=== PATIENT | female | born 1995 | race Hispanic/Latino ===

== ENCOUNTER 2017-03-13 00:48 | Emergency (ER) | payer BC ==
[2017-03-13 01:00] VITALS: BMI 17.7
[2017-03-13 01:02] VITALS: BP 123/75; PULSE 92; RESP 16; TEMP 98.6; O2SAT 98
--- NOTE | 2017-03-13 01:17 | ED PDOC ---
HPI: Female Pain Time Seen by Provider: 03/13/17 01:03 Chief Complaint (Nursing): Female Genitourinary Chief Complaint (Provider): Possible STD History Per: Patient History/Exam Limitations: no limitations Additional Complaint(s): 22 year old female presents to ED with concern for contracted STD and has no past medical history. Patient's boyfriend noticed penile sores and was being evaluated in the ED, causing the patient to request testing as well. Patient denies all medical symptoms. Notes that she had sex with her boyfriend x1 hour [employer]. Confirms that she only has one sexual partner. PCP: Cm Past Medical History Reviewed: Historical Data, Nursing Documentation, Vital Signs Vital Signs: Last Vital Signs Temp 98.6 F 03/13/17 01:00 Pulse 92 H 03/13/17 01:00 Resp 16 03/13/17 01:00 BP 123/75 03/13/17 01:00 Pulse Ox 98 03/13/17 01:00 - Medical History PMH: No Chronic Diseases - Surgical History Surgical History: No Surg Hx - Family History Family History: States: No Known Family Hx - Living Arrangements Living Arrangements: With Friends/Others - Social History Alcohol: Social Drugs: Denies - Immunization History Hx Tetanus Toxoid Vaccination: No Hx Influenza Vaccination: No Hx Pneumococcal Vaccination: No - Home Medications Home Medications: Ambulatory Orders Medication Instructions Recorded Metaxalone [Skelaxin] 800 mg PO Q8H PRN #20 tab 03/22/15 Nabumetone [Relafen] 500 mg PO BID #20 tab 03/22/15 - Allergies Allergies/Adverse Reactions: Allergies Allergy/AdvReac Type Severity Reaction Status Date / Time No Known Allergies Allergy Verified 03/13/17 01:00 Review of Systems ROS Statement: Except As Marked, All Systems Reviewed And Found Negative ( Denies all medical complaints) Physical Exam - Reviewed Nursing Documentation Reviewed: Yes Vital Signs Reviewed: Yes - Physical Exam Appears: Positive for: Non-toxic, No Acute Distress Skin: Positive for: Normal Color, Warm, Dry Respiratory: Positive for: Normal Breath Sounds. Negative for: Respiratory Distress Gastrointestinal/Abdominal: Positive for: Soft. Negative for: Tenderness Neurologic/Psych: Positive for: Alert, Oriented - ECG O2 Sat by Pulse Oximetry: 98 (RA) Pulse Ox Interpretation: Normal Medical Decision Making Medical Decision Makin Initial impression: possible STD Initial plan: * Chlamydia/GC RNA, TMA Patient refuses test for syphilis. 0200 Patient is stable for discharge. pt redusing other treatment and will follow up with pcp for further evaluation and treatment Scribe Attestation: Documented by Hegla Samano acting as a scribe for Ashely Garcia MD. Scribe Attestation: All medical record entries made by the Scribe were at my direction and personally dictated by me. I have reviewed the chart and agree that the record accurately reflects my personal performance of the history, physical exam, medical decision making, and the department course for this patient. I have also personally directed, reviewed, and agree with the discharge instructions and disposition. Disposition - Clinical Impression Clinical Impression: Female genitourinary symptoms - Patient ED Disposition Is Patient to be Admitted: No Counseled Patient/Family Regarding: Studies Performed, Diagnosis, Need For Followup - Disposition Disposition: Routine/Home Disposition Time: 02:00 Condition: IMPROVED Additional Instructions: follow up with your primary doctor in 1-2 days return to the ED with any worsening or concerning symptoms Forms: [employer] (Kyrgyz)
== END 2017-03-13 02:00 | disposition home or self-care (01) ==
LOC: H.ER 00:48
DX: R39.9 Unspecified symptoms and signs involving the genitourinary system (principal); Z11.3 Encounter for screening for infections with a predominantly sexual mode of transmission; Z20.2 Contact with and (suspected) exposure to infections with a predominantly sexual mode of transmission; R10.2 Pelvic and perineal pain